=== PATIENT | male | born 1995 | race American Indian/Alaskan Native ===

== ENCOUNTER 2020-09-23 17:14 | Emergency (ER) | payer SELFPAY ==
[2020-09-23 18:16] VITALS: BP 132/80
--- NOTE | 2020-09-23 18:43 | XRay Report ---
CHEST 2 VIEWS INDICATION / CLINICAL INFORMATION: chest pain. COMPARISON: None available. FINDINGS: SUPPORT DEVICES: None. HEART / MEDIASTINUM: No significant abnormality. LUNGS / PLEURA: No significant pulmonary or pleural abnormality. No pneumothorax. ADDITIONAL FINDINGS: No significant additional findings. IMPRESSION: 1. No acute findings. Signer Name: Anton Escobedo MD Signed: 09/23/2020 6:38 PM Workstation Name: [id number]
== END 2020-09-24 | disposition left against medical advice (07) ==
LOC: ED 17:14
DX: R07.89 Other chest pain (principal); Z53.21 Procedure and treatment not carried out due to patient leaving prior to being seen by health care provider
CPT/HCPCS: 71046